=== PATIENT | male | born 1940 | race Caucasian/White ===

== ENCOUNTER 2020-07-24 12:35 | Outpatient (CLI) | payer MEDICARE, OTHER ==
[2020-07-24] MEDS ORDERED: REGADENOSON 0.4 MG/5 ML SYRINGE ONE (13:02)
== END 2020-07-24 23:59 | disposition home or self-care (01) ==
LOC: CFH 12:35
PROVIDERS: ATTEND Internal Medicine Cardiovascular Disease
DX: Z01.810 Encounter for preprocedural cardiovascular examination (principal); Z95.2 Presence of prosthetic heart valve
CPT/HCPCS: 78452; 93017; A9502; J2785

== ENCOUNTER → 2020-07-31 | Outpatient (CLI) | payer MEDICARE, OTHER | END | disposition home or self-care (01) | LOC: CVU 06:44 | PROVIDERS: ATTEND Internal Medicine Cardiovascular Disease | DX: Z01.810 Encounter for preprocedural cardiovascular examination (principal); I34.8 Other nonrheumatic mitral valve disorders; Z95.2 Presence of prosthetic heart valve | CPT/HCPCS: 93306; 93356 ==